=== PATIENT | female | born 1990 | race Caucasian/White ===

== ENCOUNTER 2017-02-19 03:43 | Emergency (ER) | payer BC, OTHER ==
[~2017-02-19] VITALS: Ht 175.3 cm; Wt 85.3 kg
[~2017-02-19 03:43] MED LIST: DOCO200C PO; IBUP600 PO
[2017-02-19] MEDS ORDERED: PREN1TAB30 (04:17)
--- NOTE | 2017-02-19 05:55 | PD ---
HPI Chief Complaint Complains of contractions every 10 minutes Date Seen: Feb 19, 2017 Travel History International Travel<30 Days: No Contact w/Intl Traveler<30Days: No Known Affected Area: No History of Present Illness HPI Patient is a 27-year-old white female at 40 weeks followed by [facility] who presents complaining of contractions basically every 10 minutes, heart rate tracing is reactive Para: 1 : 2 History Obstetric History Obstetric History One vaginal delivery Social History Alcohol Use: No Tobacco Use: No Substance Abuse: No Allergies-Medications (Allergen,Severity, Reaction): Coded Allergies: Darvocet-N 100 (Verified Allergy, Unknown, 02/19/17) Penicillin (Verified Allergy, Unknown, 02/19/17) Vicodin (Verified Allergy, Unknown, 02/19/17) Home Meds Reported Medications Vit W/ Ferrous Fumara ( Vitamin 27-0.8 mg)1 Tab Tab Dailyac 02/19/17 Discontinued Reported Medications Docosahexaenoic Acid ( Dha)200 Mg [id number] Mg PO DAILY 03/06/14 Discontinued Scripts Ibuprofen (Motrin 600 Mg Tab)600 Mg [id number] Mg PO Q6H PRN ( CRAMPING) # 30 TAB Ref 0 Prov:MAGDALENO COSTANAneudy 03/09/14 Review of Systems General / Constitutional: No: Fever, Weight Gain, Chills, Other Eyes: No: Diploplia, Blurred Vision, Visual changes, Pain, Photophobia HENT: No: Headaches, Vertigo, Lightheadedness Cardiovascular: No: Irregular Rhythm, Chest Pain or Discomfort, Palpitations, Tachycardia, Syncope, Varicosities, Edema, Cyanosis Respiratory: No: Cough, Short of Breath, Other Gastrointestinal: No: Nausea, Vomiting, Diarrhea Genitourinary: No: Decreased Urinary Output, Oliguria Musculoskeletal: No: Limited ROM, Weakness, Cramping, Edema, Pain Skin: No Rash, No Itching, No Dryness, No Lumps, No Change in Pigmentation, No Change in Nails, No Alopecia, No Lesions Neurologic: No: Weakness, Dizziness, Syncope, Focal Abnormalities, Coordination Problem, Headache, Slurred Speech, Seizures Psychiatric: No: Depression, Suicidal Ideations, Homicidal Ideation Endocrine: No: Heat Intolerance, Cold Intolerance, Polydipsia, Polyuria, Other Physical Exam Narrative GENERAL: Well-nourished, well-developed patient. SKIN: Warm and dry. HEAD: Normocephalic and atraumatic. EYES: No scleral icterus. No injection or drainage. ENT: No nasal drainage noted. Mucous membranes pink. Airway patent. NECK: Supple, trachea midline. No JVD. CARDIOVASCULAR: Regular rate and rhythm without murmurs, gallops, or rubs. RESPIRATORY: Breath sounds equal bilaterally. No accessory muscle use. BREASTS: Bilateral exam showed no masses , no retractions, no nipple discharge. ABDOMEN/GI: Abdomen soft, non-tender, bowel sounds present, no rebound, no guarding Gravid to [-term] weeks size Fundal Height: [40-] GENITOURINARY: External Genitalia: intact and normal in appearance BUS glands: [-] Cervix: [-] Dilatation: [5-6-] Effacement: [-70] Station: [-3] posterior Presentation: [vtx-] Membranes: [intact ] Uterine Contractions: [Irregular approximately every 10 minutes-] FHT's: Category: [-1] Baseline: [133-] Reactive: [yes-] Variability: [-mod] Decels: [-0] EXTREMITIES: No cyanosis or edema. BACK: Nontender without obvious deformity. No CVA tenderness. NEUROLOGICAL: Awake and alert. Motor and sensory grossly within normal limits. Five out of 5 muscle strength in all muscle groups. Normal speech. MDM Interpretation(s) 27-year-old white female at 40 weeks lidia irregularly approximately every 10 minutes, heart rate tracing is reactive. The cervix is dilated to 5-6 cm / 70% effaced and very posterior. Patient walk for an hour really not much change in her cervix, patient is not uncomfortable she is sitting on the stretcher talking and smiling Plan Discharge home to observation, contractions are every 5 minutes, return sooner for any other symptomatology like bleeding or leakage of fluid Diagnosis Diagnosis: Primary Impression: 40 weeks gestation of Additional Impression: Uterine contractions during Disposition: DISCHARGE HOME Condition: Stable Dale Hernandez II, MD Feb 19, 2017 05:55
[2017-02-19] MEDS ORDERED: PERI8.6T PO (12:48)
[2017-02-19] MEDS ORDERED: IBUP-232 PO (12:48)
== END 2017-02-19 06:09 | disposition home or self-care (01) ==
LOC: HOBED 03:43 → H2EB 05:54 → UNDOADMIN 05:54
DX: O62.9 Abnormality of forces of labor, unspecified (principal); Z3A.40 40 weeks gestation of pregnancy
CPT/HCPCS: 99284

== ENCOUNTER 2017-02-19 10:35 | Inpatient (IN) | payer OTHER ==
[2017-02-19] VITALS (14 sets, daily range): BP systolic 93–123; BP diastolic 60–73; PULSE 78–120; RESP 18; TEMP 97.7–98.2
[~2017-02-19 10:35] MED LIST changes: +PREN1TAB30
[2017-02-19] MEDS ORDERED: LACTATED RINGER'S 1000 ML INJ 1,000 ML IV SCH (10:56)
[2017-02-19] MEDS ORDERED: LACTATED RINGER'S 1000 ML INJ 1,000 ML IV PRN (10:56)
[2017-02-19] MEDS ORDERED: OXYTOCIN 30 UNITS-500ML PREMIX 500 ML IV ONE (11:00)
[2017-02-19] MEDS ORDERED: LIDOCAINE HCL 1% 50 ML VIAL INFIL PRN (11:00)
[2017-02-19] MEDS ORDERED: LIDOCAINE HCL 1% 50 ML VIAL I-DERMAL PRN (11:00)
[2017-02-19] MEDS ORDERED: SODIUM CHLORID 0.9% 500 ML INJ 500 ML IV PRN (11:00)
[2017-02-19] MEDS ORDERED: CITRIC ACID-SODIUM CITRATE LIQ 30 ML UDC PO SCH (11:00)
[2017-02-19] MEDS ORDERED: ONDANSETRON HCL 4 MG/2 ML VIAL IV PRN (11:00)
[2017-02-19] MEDS ORDERED: MINERAL OIL 10 ML VIAL TOPICAL PRN (11:00)
[2017-02-19] MEDS ORDERED: OXYTOCIN 30 UNITS-500ML PREMIX 500 ML IV SCH (11:00)
[2017-02-19] MEDS ORDERED: SODIUM CHLOR 0.9% 1000 ML INJ 1,000 ML IV PRN (11:16)
[2017-02-19 11:17] LABS: AUTOMATED NEUTROPHIL # 11.4 TH/MM3 (1.8-7.7); BASOPHIL % 0.2 % (0.0-2.0); EOSINOPHIL % 0.2 % (0.0-4.0); HEMATOCRIT 35.3 % (35.0-46.0); HEMO FLAGS DIFF FINAL; LYMPH % 11.3 % (9.0-44.0); LYMPHOCYTE # 1.5 TH/MM3 (1.0-4.8); MEAN CELL VOLUME 86.2 FL (80.0-100.0); MEAN CORPUSCULAR HEMOGLOBIN 29.5 PG (27.0-34.0); MEAN CORPUSCULAR HGB CONC 34.2 % (32.0-36.0); MONO % 4.5 % (0.0-8.0); NEUT % 83.8 % (16.0-70.0); PLATELET COUNT 173 TH/MM3 (150-450); RED BLOOD COUNT 4.09 MIL/MM3 (4.00-5.30); WHITE BLOOD COUNT 13.6 TH/MM3 (4.0-11.0)
--- NOTE | 2017-02-19 11:41 | HHI.HP ---
HPI Chief Complaint contractions, labor pains Date Seen: Feb 19, 2017 Time Seen: 11:25 Travel History International Travel<30 Days: No Contact w/Intl Traveler<30Days: No Known Affected Area: No History of Present Illness HPI 27 yo with EDC 02/17/17 presents for regular painful contractions since yesterday; was previously seen & sent home from OB ED around 4am today at 6cm "because my contractions were spaced at 10 min and they told me I was posterior. " Pt states contractions are q5 min, 05/18 painscale. Denies LOF or VB, is feeling movement. Para: 1 : 2 Last Menstrual Period: May 13, 2016 Miscarriage: 0 : 0 History Past Medical History Narrative Medical denies Obstetric History Obstetric History G1 = FT 40 wks 02/2014 daughter G2 = current, female Past Surgical History Narrative Surgical R&L knee 03/2007 abd surgery/xlap "benign mass" 05/2007 Family History Family History: Negative Social History Alcohol Use: No Tobacco Use: No Substance Abuse: No Allergies-Medications (Allergen,Severity, Reaction): Coded Allergies: Darvocet-N 100 (Verified Allergy, Unknown, 02/19/17) Penicillin (Verified Allergy, Unknown, 02/19/17) Vicodin (Verified Allergy, Unknown, 02/19/17) Home Meds Reported Medications Vit W/ Ferrous Fumara ( Vitamin 27-0.8 mg)1 Tab Tab Dailyac 02/19/17 Discontinued Reported Medications Docosahexaenoic Acid ( Dha)200 Mg [id number] Mg PO DAILY 03/06/14 Discontinued Scripts Ibuprofen (Motrin 600 Mg Tab)600 Mg [id number] Mg PO Q6H PRN ( CRAMPING) # 30 TAB Ref 0 Prov:MAGDALENO COSTA C.N.M. 03/09/14 Review of Systems General / Constitutional: Weight Gain, No: Fever, Chills, Other Eyes: No: Diploplia, Blurred Vision, Visual changes, Pain, Photophobia HENT: No: Headaches, Vertigo, Lightheadedness Cardiovascular: No: Irregular Rhythm, Chest Pain or Discomfort, Palpitations, Tachycardia, Syncope, Varicosities, Edema, Cyanosis Respiratory: No: Cough, Short of Breath, Other Gastrointestinal: No: Nausea, Vomiting, Diarrhea Genitourinary: Pelvic Pain (pressure, contractions), No: Decreased Urinary Output, Oliguria Musculoskeletal: No: Limited ROM, Weakness, Cramping, Edema, Pain Skin: No Rash, No Itching, No Dryness, No Lumps, No Change in Pigmentation, No Change in Nails, No Alopecia, No Lesions Neurologic: No: Weakness, Dizziness, Syncope, Focal Abnormalities, Coordination Problem, Headache, Slurred Speech, Seizures Psychiatric: No: Depression, Suicidal Ideations, Homicidal Ideation Endocrine: No: Heat Intolerance, Cold Intolerance, Polydipsia, Polyuria, Other Physical Exam Vital Signs Date Time Temp Pulse Resp B/P Pulse Ox O2 Delivery O2 Flow Rate FiO2 02/19/17 11:00 18 Narrative GENERAL: Well-nourished, well-developed patient. SKIN: Warm and dry. HEAD: Normocephalic and atraumatic. EYES: No scleral icterus. No injection or drainage. ENT: No nasal drainage noted. Mucous membranes pink. Airway patent. NECK: Supple, trachea midline. No JVD. CARDIOVASCULAR: Regular rate and rhythm without murmurs, gallops, or rubs. RESPIRATORY: Breath sounds equal bilaterally. No accessory muscle use. BREASTS: Bilateral exam showed no masses , no retractions, no nipple discharge. ABDOMEN/GI: Abdomen soft, non-tender, bowel sounds present, no rebound, no guarding Gravid to 40 weeks size Fundal Height: 40 GENITOURINARY: SVE 9/C/-1 AROM'd this check FHT's: Category: I EXTREMITIES: No cyanosis or edema. BACK: Nontender without obvious deformity. No CVA tenderness. NEUROLOGICAL: Awake and alert. Motor and sensory grossly within normal limits. Five out of 5 muscle strength in all muscle groups. Normal speech. Data Data Vital Signs Reviewed: Yes Orders Admit To Inpatient (02/19/17 ) Code Status (02/19/17 10:56) Vital Signs (Adult) .Per protocol (02/19/17 10:56) Activity Oob Ad Yany (02/19/17 10:56) Heart (02/19/17 10:56) Amnioinfusion (02/19/17 10:56) Urinary Catheter Management .ONCE (02/19/17 10:56) Diet Npo (02/19/17 Lunch) Lactated Ringer's 1000 Ml Inj (Lr 1000 M (02/19/17 10:56) Lactated Ringer's 1000 Ml Inj (Lr 1000 M (02/19/17 10:56) Sodium Chlorid 0.9% 500 Ml Inj (Ns 500 M (02/19/17 11:00) Sodium Chlor 0.9% 1000 Ml Inj (Ns 1000 M (02/19/17 11:16) Lidocaine 1% Inj (50 Ml) (Xylocaine 1% I (02/19/17 11:00) Citric Acid-Sodium Citrate Liq (Bicitra (02/19/17 11:00) Ondansetron Inj (Zofran Inj) (02/19/17 11:00) Fentanyl Inj (Fentanyl Inj) (02/19/17 11:00) Fentanyl Inj (Fentanyl Inj) (02/19/17 11:00) Complete Blood Count With Diff (02/19/17 10:56) Hold Clot (02/19/17 10:56) Abo/Rh Blood Type (02/19/17 10:56) Urinalysis - C+S If Indicated (02/19/17 10:56) Resp Oxygen Non Rebreathe Mask (02/19/17 ) ^ Epidural / Intrathecal Infus (02/19/17 10:56) Oxytocin 30 Units-500ml Premix (Pitocin (02/19/17 11:00) Lidocaine 1% Inj (50 Ml) (Xylocaine 1% I (02/19/17 11:00) Light Mineral Oil (Muri-Lube Oil) (02/19/17 11:00) Inpatient Certification (02/19/17 ) Specimen To Be Collected PRN (02/19/17 10:56) ^ Non Stress Test (02/19/17 10:58) Response To Medication .Post New Med Administration, Reaction (02/19/17 10:58) ^ Discontinue Medication (02/19/17 10:58) Oxytocin 30 Units-500ml Premix (Pitocin (02/19/17 11:00) Labs Laboratory Tests Test 02/19/17 10:55 White Blood Count 13.6 Red Blood Count 4.09 Hemoglobin 12.1 Hematocrit 35.3 Mean Corpuscular Volume 86.2 Mean Corpuscular Hemoglobin 29.5 Mean Corpuscular Hemoglobin 34.2 Concent Red Cell Distribution Width 14.0 Platelet Count 173 Mean Platelet Volume 9.1 Neutrophils (%) (Auto) 83.8 Lymphocytes (%) (Auto) 11.3 Monocytes (%) (Auto) 4.5 Eosinophils (%) (Auto) 0.2 Basophils (%) (Auto) 0.2 Neutrophils # (Auto) 11.4 Lymphocytes # (Auto) 1.5 Monocytes # (Auto) 0.6 Eosinophils # (Auto) 0.0 Basophils # (Auto) 0.0 CBC Comment DIFF FINAL Differential Comment Assessment/Plan Problem List: (1) Labor and delivery indication for care or intervention Assessment and Plan 27 yo at 40w2d by LMP c/w 13 wk sono, admit for labor 1) labor: admit, anticipate 2) GBS neg 3) Rubella equivocal 4) Varicella non-immune 5) status: vtx, Cat I tracing, female Discharge Planning routine for 2d PP Venessa Marks MD Feb 19, 2017 11:41
[2017-02-19 11:43] LABS: BACTERIA, URINE FEW /hpf; BLOOD, URINE MOD (NEG); COMMENT (UR) CULTURE INDICATED; CULTURE IF INDICATED CULTURE INDICATED; GLUCOSE,URINE NEG (NEG); KETONE, URINE NEG (NEG); NITRITE,URINE NEG (NEG); PH, URINE 8.5 (5.0-8.5); SQUAMOUS EPITHELIAL CELL URINE 4 /hpf (0-5); URINE COLOR YELLOW (YELLW/STRAW)
[2017-02-19] MEDS ORDERED: MISOPROSTOL 200 MCG TAB ONE ×2 (12:18→12:22)
[2017-02-19] MEDS ORDERED: OXYTOCIN 10 UNIT/ML AMP ONE ×2 (12:18→12:19)
--- NOTE | 2017-02-19 12:47 | PD.OB.DELI ---
Delivery Date: Feb 19, 2017 Anesthesia: None Episiotomy: None Vaginal Delivery: Normal Presentation: Occiput anterior Nuchal Cord: None Delayed cord clamping (45 sec): Yes Infant: Single One Minute : 9 Five Minute : 9 Weight: pending Placenta: Spontaneous delivery, Intact, 3 vessel cord, Other (cord blood banking performed) Laceration: Perineal laceration, 2 deg Repair: Chromic running Additional Information EBL 300 mL pt's IV lost during delivery, after delivery of infant cytotec 800 mcg placed rectally & 10mg IM pitocin administered; IV restarted after delivery of placenta Venessa Marks MD Feb 19, 2017 12:47
--- NOTE | 2017-02-19 12:47 | HHI.DCPOC ---
Discharge Care Plan Diagnosis: (1) Vaginal delivery Your Health Problems Are: Vaginal delivery Report Symptoms to Your Doctor -Temperature above 100.5 degrees -Redness, of incision or excessive or foul smelling drainage -Unusual pain or calf pain -Increased vaginal bleeding -Painful or difficulty urinating -Feelings of extreme sadness or anxiety after 2 weeks Goals to Promote Your Health * To prevent worsening of your condition and complications * To maintain your health at the optimal level Directions to Meet Your Goals Take your medications as prescribed Follow your dietary instruction Follow activity as directed Ensure plenty of rest for recovery Drink fluids for hydration Keep your appointments as scheduled Take your immunizations and boosters as scheduled If your symptoms worsen call your PCP, if no PCP go to Urgent Care Center or Emergency Room Smoking is Dangerous to Your Health. Avoid second hand smoke Call the 24-hour crisis hotline for domestic abuse at Venessa Marks MD Feb 19, 2017 12:47
[2017-02-19] MEDS ORDERED: PERI8.6T PO (12:48)
[2017-02-19] MEDS ORDERED: IBUP-232 PO (12:48)
[2017-02-19] MEDS ORDERED: SODIUM CHLORIDE 0.9% FLUSH 10 ML FLUSH IV FLUSH SCH (13:00)
[2017-02-19] MEDS ORDERED: ONDANSETRON ODT 4 MG TAB PO PRN (13:00)
[2017-02-19] MEDS ORDERED: DOCUSATE SODIUM 50 MG/SENNA 8.6 MG TAB PO PRN (13:00)
[2017-02-19] MEDS ORDERED: ALUMINUM/MAGNESIUM/SIMETH 30 ML CUP PO PRN (13:00)
[2017-02-19] MEDS ORDERED: OXYTOCIN 10 UNIT/ML AMP IM ONE (13:00)
[2017-02-19] MEDS ORDERED: SODIUM CHLORIDE 0.9% FLUSH 10 ML FLUSH IV FLUSH PRN (13:00)
[2017-02-19] MEDS ORDERED: WITCH HAZEL 50%/GLYCERIN 12.5% 40 PAD JAR TOPICAL PRN (13:00)
[2017-02-19] MEDS ORDERED: MISOPROSTOL 200 MCG TAB RECTAL ONE (13:00)
[2017-02-19] MEDS ORDERED: ACETAMINOPHEN 325 MG TAB PO PRN (13:00)
[2017-02-19] MEDS ORDERED: oxyCODONE/ACETAMINOPHEN 5 MG/325 MG TAB PO PRN ×2 (13:00)
[2017-02-19] MEDS ORDERED: ZOLPIDEM TARTRATE 5 MG TAB PO PRN (13:00)
[2017-02-19] MEDS: IBUPROFEN 600 MG TAB PO PRN ×2 (13:08→19:09)
[2017-02-19] MEDS: BENZOCAINE 20% TOPICAL SPRAY 60 ML CAN TOPICAL PRN (13:31)
[2017-02-19] MEDS ORDERED: MEASLES, MUMPS, RUBELLA VACCINE 0.5 ML VIAL SQ ONE (16:00)
[2017-02-19] MEDS ORDERED: DIPHTH/TETANUS/ACEL PERTUSSIS (BOOSTER) 0.5 ML VIAL/PFS IM ONE (16:00)
[2017-02-20] MEDS: IBUPROFEN 600 MG TAB PO PRN ×2 (01:09→14:44)
[2017-02-20 08:00] VITALS: BP 120/75; PULSE 121; RESP 20; TEMP 97.7
[2017-02-20] MEDS: BENZOCAINE 20% TOPICAL SPRAY 60 ML CAN TOPICAL PRN (10:18)
--- NOTE | 2017-02-20 14:08 | HHI.OB ---
Subjective Post Day: 1 Remarks Doing well Pain is well controlled Tolerating diet Baby is doing well. Objective Vitals/I&O Vital Signs Date Time Temp Pulse Resp B/P Pulse Ox O2 Delivery O2 Flow Rate FiO2 02/20/17 08:00 97.7 20 02/20/17 08:00 121 120/75 02/19/17 20:05 98.1 88 18 93/65 02/19/17 14:55 83 18 106/69 02/19/17 14:55 97.9 02/19/17 14:15 99 111/73 Objective Remarks GENERAL: Well-nourished, well-developed patient. CARDIOVASCULAR: Regular rate and rhythm without murmurs, gallops, or rubs. RESPIRATORY: Breath sounds equal bilaterally. No accessory muscle use. ABDOMEN/GI: Abdomen soft, non-tender. Fundus: Firm, non-tender at umbilicus. GENITOURINARY: Light to moderate bleeding. EXTREMITIES: No cyanosis or edema, non-tender, without signs of DVT. Medications and IVs Current Medications Medications (Trade) Dose Ordered Sig/Tylor Route Start Time Stop Time Status Last Admin (NS Flush) 2 ml BID IV FLUSH 02/19/17 13:00 02/19/17 13:30 (NS Flush) 2 ml UNSCH PRN IV FLUSH 02/19/17 13:00 (Tylenol) 650 mg Q4H PRN PO 02/19/17 13:00 (Motrin) 600 mg Q6H PRN PO 02/19/17 13:00 02/20/17 01:09 (Percocet 5-325 Mg) 1 tab Q4H PRN PO 02/19/17 13:00 (Percocet 5-325 Mg) 2 tab Q4H PRN PO 02/19/17 13:00 (Americaine 20% Top Spr) 1 spray Q4H PRN TOPICAL 02/19/17 13:00 02/20/17 10:18 (Tucks Pads) 1 applic QID PRN TOPICAL 02/19/17 13:00 02/19/17 13:31 (Jenny-Colace) 2 tab Q12H PRN PO 02/19/17 13:00 (Ambien) 5 mg HS PRN PO 02/19/17 13:00 (Mag-Al Plus Susp Liq) 15 ml Q8H PRN PO 02/19/17 13:00 (Zofran Odt) 4 mg Q6H PRN PO 02/19/17 13:00 Assessment/Plan Problem List: (1) Labor and delivery indication for care or intervention Discharge Planning PPD #1 Doing well Routine care. Christian Lindsay MD Feb 20, 2017 14:08
== END 2017-02-20 15:33 | disposition home or self-care (01) | DRG 775 ==
LOC: HOBED 10:35 → H2EB 10:38 → H1EA 14:53
PROVIDERS: ADMIT Obstetrics & Gynecology; ATTEND Obstetrics & Gynecology
PROC: 10E0XZZ Delivery of Products of Conception, External Approach (ICD-10-PCS; principal; 2017-02-19)
PROC: 0KQM0ZZ Repair Perineum Muscle, Open Approach (ICD-10-PCS; 2017-02-19)
DX: O70.1 Second degree perineal laceration during delivery (principal); Z37.0 Single live birth; Z3A.40 40 weeks gestation of pregnancy
CPT/HCPCS: 59025; 81001; 85025; 86900; 86901; 87086; 90707; J2590; J7120